=== PATIENT | male | born 1945 | race African-American/Black ===

== ENCOUNTER 2018-02-02 12:34 | Inpatient (IN) | payer OTHER ==
[2018-02-02 13:01] VITALS: BMI 24.9
--- NOTE | 2018-02-02 13:17 | HP ---
CIWA Score - CIWA Score Nausea/Vomitin-Mild Nausea/No Vomiting Muscle Tremors: 4-Moderate,w/Arms Extend Anxiety: 4-Mod. 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" 1979 heart attack Allergies/Adverse Reactions: Allergies Allergy/AdvReac Type Severity Reaction Status Date / Time No Known Allergies Allergy Verified 02/02/18 13:19 History of Present Illness: 72 years old male with long history of alcohol nicotine dependence has asthma and hypertension denies mental illness longest sobriety 3 years last detox "years ago" history of lumbar plate 2014 surgical repaired from fall is admitted to detox Exam Limitations: No Limitations - Ebola screening Have you traveled outside of the country in the last 21 days: No Have you had contact with anyone from an Ebola affected area: No Have you been sick,other than usual withdrawal symptoms: No Do you have a fever: No - Review of Systems Constitutional: Night Sweats, Weight Stable EENT: reports: Blurred Vision (need eye glasses) Respiratory: reports: SOB with Exertion, Productive cough (smoker's cough) Cardiac: reports: No Symptoms Reported GI: reports: Nausea, Poor Fluid Intake, Indigestion, Abdominal cramping : reports: No Symptoms Reported Musculoskeletal: reports: Back Pain (lumbar surgery for fall) Integumentary: reports: No Symptoms Reported Neuro: reports: Tremors Endocrine: reports: No Symptoms Reported Hematology: reports: No Symptoms Reported Psychiatric: reports: Judgement Intact, Orientated x3, Anxious, Depressed Other Systems: Reviewed and Negative Patient History - Patient Medical History Hx Anemia: No Hx Asthma: Yes Hx Chronic Obstructive Pulmonary Disease (COPD): No Hx Cancer: No Hx Cardiac Disorders: No Hx Congestive Heart Failure: No Hx Hypertension: Yes Hx Hypercholesterolemia: No Hx Pacemaker: No HX Cerebrovascular Accident: No Hx Seizures: No Hx Dementia: No Hx Diabetes: No Hx Gastrointestinal Disorders: Yes Hx Liver Disease: No Hx Genitourinary Disorders: No Hx Sexually Transmitted Disorders: No Hx Renal Disease (ESRD): No Hx Thyroid Disease: No Hx Human Immunodeficiency Virus (HIV): No Hx Hepatitis C: No Hx Depression: No Hx Suicide Attempt: No Hx Bipolar Disorder: No Hx Schizophrenia: No - Patient Surgical History Past Surgical History: Yes Hx Neurologic Surgery: Yes (lumbar 2014) Hx Cataract Extraction: No Hx Cardiac Surgery: No Hx Lung Surgery: No Hx Breast Surgery: No Hx Breast Biopsy: No Hx Abdominal Surgery: No Hx Appendectomy: No Hx Cholecystectomy: No Hx Genitourinary Surgery: No Hx Orthopedic Surgery: Yes (spine) Anesthesia Reaction: No - PPD History Previous Implant?: Yes Documented Results: Positive w/o proof Implanted On Prior [facility] Admission?: No PPD to be Administered?: No - Smoking Cessation Smoking history: Current every day smoker Have you smoked in the past 12 months: Yes Aproximately how many cigarettes per day: 10 Cigars Per Day: 0 Hx Chewing Tobacco Use: No Initiated information on smoking cessation: Yes 'Breaking Loose' booklet given: 02/02/18 - Substance & Tx. History Hx Alcohol Use: Yes Hx Substance Use: Yes Substance Use Type: Alcohol, Cocaine Hx Substance Use Treatment: Yes (2015) Family Disease History - Family Disease History Family Disease History: Heart Disease: Father (), Mother (), Other: Father, Mother Admission Physical Exam BHS - Vital Signs Vital Signs: Vital Signs - 24 hr 02/02/18 12:57 Temperature 98 F Pulse Rate 80 Respiratory 18 Rate Blood Pressure 143/76 - Physical General Appearance: Yes: Nourished, Appropriately Dressed, Mild Distress, Tremorous, Irritable, Sweating, Anxious HEENTM: Yes: Hearing grossly Normal, Normocephalic, Normal Voice Respiratory: Yes: Chest Non-Tender, No Respiratory Distress, No Accessory Muscle Use, Wheezing, Expiration Neck: Yes: Supple, Trachea in good position Breast: Yes: Breasts Symetrical, No Discharge Cardiology: Yes: Regular Rhythm, Regular Rate, S1, S2 Abdominal: Yes: Normal Bowel Sounds, Non Tender, Flat Genitourinary: Yes: Within Normal Limits Back: Yes: Normal Inspection Musculoskeletal: Yes: Gait Steady (walker), Muscle weakness (legs) Extremities: Yes: Normal Inspection, Non-Tender, Tremors Neurological: Yes: Fully Oriented, Alert, Normal Mood/Affect, Normal Response Integumentary: Yes: Warm Lymphatic: Yes: Within Normal Limits - Diagnostic (1) Alcohol dependence with uncomplicated withdrawal Current Visit: Yes Status: Acute (2) Positive PPD, treated Current Visit: Yes Status: Resolved (3) Nicotine dependence Current Visit: Yes Status: Acute Qualifiers: Nicotine product type: cigarettes Substance use status: in withdrawal Qualified Code(s): F17.213 - Nicotine dependence, cigarettes, with withdrawal (4) Asthma Current Visit: Yes Status: Chronic Qualifiers: Asthma severity: mild Asthma persistence: intermittent Asthma complication type: with status asthmaticus Qualified Code(s): J45.22 - Mild intermittent asthma with status asthmaticus (5) Hypertension Current Visit: Yes Status: Chronic Qualifiers: Hypertension type: essential hypertension Qualified Code(s): I10 - Essential (primary) hypertension (6) GERD (gastroesophageal reflux disease) Current Visit: Yes Status: Chronic Qualifiers: Esophagitis presence: without esophagitis Qualified Code(s): K21.9 - Gastro -esophageal reflux disease without esophagitis (7) Walker as ambulation aid Current Visit: Yes Status: Chronic Cleared for Admission BHS - Detox or Rehab [facility] Level of Care: Medically Managed Detox Regimen/Protocol: Librium [facility] Breath Alcohol Content Breath Alcohol Content: 0 Urine Drug Screen - Control Is Test Valid: Yes - Results Drug Screen Negative: No Urine Drug Screen Results: JANELLE-Cocaine
[2018-02-02] MEDS ORDERED: guaiFENesin/D-METHORPHAN HB 10 ML UNIT-DOSE CUPS PO PRN (13:34)
[2018-02-02] MEDS ORDERED: MAGNESIUM HYDROX 2400MG/30ML ORAL SUSPENSION 30 ML CUP PO PRN (13:34)
[2018-02-02] MEDS ORDERED: IBUPROFEN 400 MG TABLET (FP) PO PRN (13:34)
[2018-02-02] MEDS ORDERED: MAG HYDROX/AL HYDROX/SIMETH 30 ML UNIT-DOSE CUP PO PRN (13:34)
[2018-02-02] MEDS ORDERED: LOPERAMIDE HCL 2 MG CAPSULE PO PRN (13:34)
[2018-02-02] MEDS ORDERED: MENTHOL/PHENOL 1 EACH UD MM PRN (13:34)
[2018-02-02] MEDS ORDERED: MAGNESIUM CITRATE 300 ML BOTTLE PO PRN (13:34)
[2018-02-02] MEDS ORDERED: ACETAMINOPHEN 325 MG TABLET (FP) PO PRN (13:34)
[2018-02-02] MEDS ORDERED: P-EPHED 60MG/TRIPROLIDI 2.5MG TABLET PO PRN (13:34)
[2018-02-02] MEDS ORDERED: NICOTINE POLACRILEX 2 MG GUM BUC PRN (13:34)
[2018-02-02] MEDS ORDERED: chlordiazePOXIDE HCL 25 MG CAPSULE PO PRN (13:34)
[2018-02-02] MEDS ORDERED: ALBUTEROL SO4 8 GM HFA INHALER IH PRN (13:38)
[2018-02-02] MEDS: RANITIDINE HCL 150 MG TABLET (FP) PO SCH ×2 (15:23→22:51)
[2018-02-02] MEDS: amLODIPine BESYLATE 5 MG TABLET (FP) PO SCH ×2 (15:23→22:51)
[2018-02-02] MEDS: NICOTINE 14 MG/24 HOURS TOPICAL PATCH TD SCH (15:27)
[2018-02-02 17:28] LABS: URINE APPEARANCE CLEAR; URINE BILIRUBIN NEGATIVE (<2.0 mg/dL); URINE COLOR YELLOW; URINE GLUCOSE (UA) NEGATIVE (NEGATIVE); URINE KETONE NEGATIVE (NEGATIVE); URINE LEUK ESTERASE NEGATIVE (NEGATIVE); URINE NITRITE NEGATIVE (NEGATIVE); URINE PROTEIN NEGATIVE (NEGATIVE)
[2018-02-02] MEDS: chlordiazePOXIDE HCL 25 MG CAPSULE PO SCH ×2 (17:51→22:53)
[2018-02-02] MEDS ORDERED: MELATONIN 5 MG TABLETS PO PRN (22:00)
[2018-02-02] MEDS: THIAMINE HCL 100 MG TABLET (FP) PO SCH (22:51)
[2018-02-03] MEDS: chlordiazePOXIDE HCL 25 MG CAPSULE PO SCH ×4 (06:15→22:20)
[2018-02-03 09:48] LABS: HEMATOCRIT 42.5 % (35.4-49); HEMOGLOBIN 13.9 GM/dL (11.7-16.9); MCH 30.7 pg (25.7-33.7); MCHC 32.8 g/dl (32.0-35.9); MEAN CELL VOLUME 93.8 fl (80-96); MEAN PLT VOLUME 10.2 fl (7.5-11.1); PLATELET COUNT 189 K/MM3 (134-434); RBC 4.54 M/mm3 (4.00-5.60); RDW 12.6 % (11.9-15.9); WHITE BLOOD COUNT 6.4 K/mm3 (4.0-10.0)
[2018-02-03] MEDS: RANITIDINE HCL 150 MG TABLET (FP) PO SCH ×2 (10:30→22:20)
[2018-02-03] MEDS: amLODIPine BESYLATE 5 MG TABLET (FP) PO SCH ×2 (10:30→22:20)
[2018-02-03] MEDS: PRENATAL VITAMINS W/ FOLIC ACID TABLET (FP) PO SCH (10:30)
[2018-02-03] MEDS: NICOTINE 14 MG/24 HOURS TOPICAL PATCH TD SCH (10:31)
--- NOTE | 2018-02-03 11:11 | PN ---
S CIWA - CIWA Score Nausea/Vomitin Muscle Tremors: 3 Anxiety: 3 Agitation: 3 Paroxysmal Sweats: 1-Minimal Palms Moist Orientation: 0-Oriented Tacttile Disturbances: 1-Very Mild Itch/Numbness Auditory Disturbances: 1-Very Mild Visual Disturbances: 0-None Headache: 2-Mild CIWA-Ar Total Score: 17 BHS Progress Note (SOAP) Subjective: alert,irritable,anxious,interrupted sleep,tremor Objective: 02/03/18 10:49 Vital Signs Temperature 97.7 F 02/03/18 09:11 Pulse Rate 85 02/03/18 09:11 Respiratory Rate 19 02/03/18 09:11 Blood Pressure 148/92 02/03/18 09:11 O2 Sat by Pulse Oximetry (%) ekg nsr,lvh Laboratory Last Values WBC 6.4 K/mm3 (4.0-10.0) 02/03/18 06:00 RBC 4.54 M/mm3 (4.00-5.60) 02/03/18 06:00 Hgb 13.9 GM/dL (11.7-16.9) 02/03/18 06:00 Hct 42.5 % (35.4-49) 02/03/18 06:00 MCV 93.8 fl (80-96) 02/03/18 06:00 MCH 30.7 pg (25.7-33.7) 02/03/18 06:00 MCHC 32.8 g/dl (32.0-35.9) 02/03/18 06:00 RDW 12.6 % (11.9-15.9) 02/03/18 06:00 Plt Count 189 K/MM3 (134-434) 02/03/18 06:00 MPV 10.2 fl (7.5-11.1) 02/03/18 06:00 Urine Color Yellow 02/02/18 16:00 Urine Appearance Clear 02/02/18 16:00 Urine pH 6.0 (5.0-8.0) 02/02/18 16:00 Ur Specific [place] 1.027 (1.001-1.035) 02/02/18 16:00 Urine Protein Negative (NEGATIVE) 02/02/18 16:00 Urine Glucose (UA) Negative (NEGATIVE) 02/02/18 16:00 Urine Ketones Negative (NEGATIVE) 02/02/18 16:00 Urine Blood Negative (NEGATIVE) 02/02/18 16:00 Urine Nitrite Negative (NEGATIVE) 02/02/18 16:00 Urine Bilirubin Negative (<2.0 mg/dL) 02/02/18 16:00 Urine Urobilinogen 2.0 mg/dL (0.2-1.0) 02/02/18 16:00 Ur Leukocyte Esterase Negative (NEGATIVE) 02/02/18 16:00 Assessment: 02/03/18 11:13 withdrawal symptom Plan: continue detox
--- NOTE | 2018-02-03 11:31 | EKG ---
Test Reason : Blood Pressure : / mmHG Vent. Rate : 080 BPM Atrial Rate : 080 BPM P-R Int : 152 ms QRS Dur : 094 ms QT Int : 418 ms P-R-T Axes : 060 048 057 degrees QTc Int : 482 ms NORMAL SINUS RHYTHM VOLTAGE CRITERIA FOR LEFT VENTRICULAR HYPERTROPHY NONSPECIFIC ST AND T WAVE ABNORMALITY PROLONGED QT ABNORMAL ECG Confirmed by MD KATIE, NAHED ([id number]) on 02/03/2018 11:31:32 AM Referred By: Confirmed By:NAHED WILSON MD
[2018-02-03 11:59] LABS: ALBUMIN 3.7 g/dl (3.4-5.0); ALK PHOS 117 U/L (45-117); ANION GAP 8 (8-16); BILIRUBIN,TOTAL 0.8 mg/dL (0.2-1.0); BLOOD UREA NITROGEN 17 mg/dL (7-18); CALCIUM 8.4 mg/dL (8.5-10.1); CHLORIDE 107 mmol/L (98-107); CO2 28 mmol/L (21-32); GLUCOSE,RANDOM 127 mg/dL (74-106); POTASSIUM 3.4 mmol/L (3.5-5.1); SGOT/AST 10 U/L (15-37); SGPT/ALT 12 U/L (12-78); SODIUM 143 mmol/L (136-145); TOT PROT 6.6 g/dl (6.4-8.2)
[2018-02-03] MEDS: THIAMINE HCL 100 MG TABLET (FP) PO SCH (22:20)
[2018-02-04] MEDS: chlordiazePOXIDE HCL 25 MG CAPSULE PO SCH (05:55)
[2018-02-04 09:12] VITALS: BP 123/82; PULSE 90; TEMP 97.5
--- NOTE | 2018-02-04 09:15 | PN ---
S CIWA - CIWA Score Nausea/Vomitin Muscle Tremors: 3 Anxiety: 3 Agitation: 2 Paroxysmal Sweats: 1-Minimal Palms Moist Orientation: 0-Oriented Tacttile Disturbances: 1-Very Mild Itch/Numbness Auditory Disturbances: 1-Very Mild Visual Disturbances: 0-None Headache: 2-Mild CIWA-Ar Total Score: 16 BHS Progress Note (SOAP) Subjective: ALERT,IRRITABLE,ANXIOUS,INTERRUPTED SLEEP,LOW BACK PAIN Objective: 02/04/18 09:13 Vital Signs Temperature 97.5 F L 02/04/18 09:12 Pulse Rate 90 02/04/18 09:12 Respiratory Rate 18 02/04/18 09:12 Blood Pressure 123/82 02/04/18 09:12 O2 Sat by Pulse Oximetry (%) 02/04/18 09:13 Laboratory Last Values WBC 6.4 K/mm3 (4.0-10.0) 02/03/18 06:00 RBC 4.54 M/mm3 (4.00-5.60) 02/03/18 06:00 Hgb 13.9 GM/dL (11.7-16.9) 02/03/18 06:00 Hct 42.5 % (35.4-49) 02/03/18 06:00 MCV 93.8 fl (80-96) 02/03/18 06:00 MCH 30.7 pg (25.7-33.7) 02/03/18 06:00 MCHC 32.8 g/dl (32.0-35.9) 02/03/18 06:00 RDW 12.6 % (11.9-15.9) 02/03/18 06:00 Plt Count 189 K/MM3 (134-434) 02/03/18 06:00 MPV 10.2 fl (7.5-11.1) 02/03/18 06:00 Sodium 143 mmol/L (136-145) 02/03/18 06:00 Potassium 3.4 mmol/L (3.5-5.1) L 02/03/18 06:00 Chloride 107 mmol/L (98-107) 02/03/18 06:00 Carbon Dioxide 28 mmol/L (21-32) 02/03/18 06:00 Anion Gap 8 (8-16) 02/03/18 06:00 BUN 17 mg/dL (7-18) 02/03/18 06:00 Creatinine 1.0 mg/dL (0.7-1.3) 02/03/18 06:00 Creat Clearance w eGFR > 60 (>60) 02/03/18 06:00 Random Glucose 127 mg/dL (74-106) H 02/03/18 06:00 Calcium 8.4 mg/dL (8.5-10.1) L 02/03/18 06:00 Total Bilirubin 0.8 mg/dL (0.2-1.0) 02/03/18 06:00 AST 10 U/L (15-37) L 02/03/18 06:00 ALT 12 U/L (12-78) 02/03/18 06:00 Alkaline Phosphatase 117 U/L (45-117) 02/03/18 06:00 Total Protein 6.6 g/dl (6.4-8.2) 02/03/18 06:00 Albumin 3.7 g/dl (3.4-5.0) 02/03/18 06:00 Urine Color Yellow 02/02/18 16:00 Urine Appearance Clear 02/02/18 16:00 Urine pH 6.0 (5.0-8.0) 02/02/18 16:00 Ur Specific [place] 1.027 (1.001-1.035) 02/02/18 16:00 Urine Protein Negative (NEGATIVE) 02/02/18 16:00 Urine Glucose (UA) Negative (NEGATIVE) 02/02/18 16:00 Urine Ketones Negative (NEGATIVE) 02/02/18 16:00 Urine Blood Negative (NEGATIVE) 02/02/18 16:00 Urine Nitrite Negative (NEGATIVE) 02/02/18 16:00 Urine Bilirubin Negative (<2.0 mg/dL) 02/02/18 16:00 Urine Urobilinogen 2.0 mg/dL (0.2-1.0) 02/02/18 16:00 Ur Leukocyte Esterase Negative (NEGATIVE) 02/02/18 16:00 RPR Titer Nonreactive (NONREACTIVE) 02/03/18 06:00 Assessment: 02/04/18 09:14 WITHDRAWAL SYMPTOM Plan: CONTINUE DETOX
--- NOTE | 2018-02-04 09:17 | PN ---
Shanika Progress Note Note: PATIENT DID NOT WANT TO COMPLETE TREATMENT DUE TO THE IN THE FAMILY,SEEN BY COUNSELOR, ALL ATTEMPTS TO CONVINCE PATIENT TO STAY WITH NO AVAIL,SIGNED RELEASE AMA
--- NOTE | 2018-02-04 09:23 | DS ---
[facility] Detox Discharge Summary Admission Date: 02/02/18 Discharge Date: 02/04/18 - History Present History: Alcohol Dependence Additional Comments: PATIENT DID NOT WANT TO COMPLETE TREATMENT,SIGNED RELEASE AMA DUE TO THE THE IN THE FAMILY, ALL ATTEMPTS TO CONVINCE PATIENT TO STAY WITH NO AVAIL K IS 3.4 ON K DUR 20 MEQ PO DAILY,DIET MODIFICATION INITIAL GLUCOSE IS 127 Pertinent Past History: ASTHMA HYPERTENSION GERD NICOTINE DEPENDENCE POSITIVE PPD LOW BACK PAIN S/P BACK SURGERY POSITIVE PPD - Physical Exam Results Vital Signs: Vital Signs Temperature 97.5 F L 02/04/18 09:12 Pulse Rate 90 02/04/18 09:12 Respiratory Rate 18 02/04/18 09:12 Blood Pressure 123/82 02/04/18 09:12 O2 Sat by Pulse Oximetry (%) Pertinent Admission Physical Exam Findings: WITHDRAWAL SIGNS AND SYMPTOM Vital Signs Temperature 97.5 F L 02/04/18 09:12 Pulse Rate 90 02/04/18 09:12 Respiratory Rate 18 02/04/18 09:12 Blood Pressure 123/82 02/04/18 09:12 O2 Sat by Pulse Oximetry (%) Laboratory Last Values WBC 6.4 K/mm3 (4.0-10.0) 02/03/18 06:00 RBC 4.54 M/mm3 (4.00-5.60) 02/03/18 06:00 Hgb 13.9 GM/dL (11.7-16.9) 02/03/18 06:00 Hct 42.5 % (35.4-49) 02/03/18 06:00 MCV 93.8 fl (80-96) 02/03/18 06:00 MCH 30.7 pg (25.7-33.7) 02/03/18 06:00 MCHC 32.8 g/dl (32.0-35.9) 02/03/18 06:00 RDW 12.6 % (11.9-15.9) 02/03/18 06:00 Plt Count 189 K/MM3 (134-434) 02/03/18 06:00 MPV 10.2 fl (7.5-11.1) 02/03/18 06:00 Sodium 143 mmol/L (136-145) 02/03/18 06:00 Potassium 3.4 mmol/L (3.5-5.1) L 02/03/18 06:00 Chloride 107 mmol/L (98-107) 02/03/18 06:00 Carbon Dioxide 28 mmol/L (21-32) 02/03/18 06:00 Anion Gap 8 (8-16) 02/03/18 06:00 BUN 17 mg/dL (7-18) 02/03/18 06:00 Creatinine 1.0 mg/dL (0.7-1.3) 02/03/18 06:00 Creat Clearance w eGFR > 60 (>60) 02/03/18 06:00 Random Glucose 127 mg/dL (74-106) H 02/03/18 06:00 Calcium 8.4 mg/dL (8.5-10.1) L 02/03/18 06:00 Total Bilirubin 0.8 mg/dL (0.2-1.0) 02/03/18 06:00 AST 10 U/L (15-37) L 02/03/18 06:00 ALT 12 U/L (12-78) 02/03/18 06:00 Alkaline Phosphatase 117 U/L (45-117) 02/03/18 06:00 Total Protein 6.6 g/dl (6.4-8.2) 02/03/18 06:00 Albumin 3.7 g/dl (3.4-5.0) 02/03/18 06:00 Urine Color Yellow 02/02/18 16:00 Urine Appearance Clear 02/02/18 16:00 Urine pH 6.0 (5.0-8.0) 02/02/18 16:00 Ur Specific [place] 1.027 (1.001-1.035) 02/02/18 16:00 Urine Protein Negative (NEGATIVE) 02/02/18 16:00 Urine Glucose (UA) Negative (NEGATIVE) 02/02/18 16:00 Urine Ketones Negative (NEGATIVE) 02/02/18 16:00 Urine Blood Negative (NEGATIVE) 02/02/18 16:00 Urine Nitrite Negative (NEGATIVE) 02/02/18 16:00 Urine Bilirubin Negative (<2.0 mg/dL) 02/02/18 16:00 Urine Urobilinogen 2.0 mg/dL (0.2-1.0) 02/02/18 16:00 Ur Leukocyte Esterase Negative (NEGATIVE) 02/02/18 16:00 RPR Titer Nonreactive (NONREACTIVE) 02/03/18 06:00 - Treatment Patient has Accepted a Rehab Referral to: DECLINED - Medication Discharge Medications: Ambulatory Orders Albuterol Sulfate Inhaler - [Ventolin Hfa Inhaler -] 2 inh PO Q4H 02/02/18 - Diagnosis (1) Alcohol dependence with uncomplicated withdrawal Current Visit: Yes Status: Acute (2) Nicotine dependence Current Visit: Yes Status: Acute Qualifiers: Nicotine product type: cigarettes Substance use status: in withdrawal Qualified Code(s): F17.213 - Nicotine dependence, cigarettes, with withdrawal (3) Asthma Current Visit: Yes Status: Chronic Qualifiers: Asthma severity: mild Asthma persistence: intermittent Asthma complication type: with status asthmaticus Qualified Code(s): J45.22 - Mild intermittent asthma with status asthmaticus (4) GERD (gastroesophageal reflux disease) Current Visit: Yes Status: Chronic Qualifiers: Esophagitis presence: without esophagitis Qualified Code(s): K21.9 - Gastro -esophageal reflux disease without esophagitis (5) Hypertension Current Visit: Yes Status: Chronic Qualifiers: Hypertension type: essential hypertension Qualified Code(s): I10 - Essential (primary) hypertension (6) Walker as ambulation aid Current Visit: Yes Status: Chronic (7) Positive PPD, treated Current Visit: Yes Status: Resolved - AMA Did Patient Leave Against Medical Advice: Yes
[2018-02-04] MEDS: RANITIDINE HCL 150 MG TABLET (FP) PO SCH (09:51)
[2018-02-04] MEDS: amLODIPine BESYLATE 5 MG TABLET (FP) PO SCH (09:51)
[2018-02-04] MEDS: PRENATAL VITAMINS W/ FOLIC ACID TABLET (FP) PO SCH (09:51)
[2018-02-04] MEDS ORDERED: POTASSIUM CHLORIDE TABS 20 MEQ TABLET.ER (FP) PO SCH (10:00)
[2018-02-04] MEDS ORDERED: chlordiazePOXIDE 5 MG CAPSULE PO SCH (17:00)
[2018-02-05] MEDS ORDERED: chlordiazePOXIDE HCL 10 MG CAPSULE PO SCH (17:00)
== END 2018-02-04 10:46 | disposition left against medical advice (07) | DRG 894 ==
LOC: YASAS 12:34 → Y6N 14:14
PROVIDERS: ADMIT Surgery; ATTEND Surgery
PROC: HZ2ZZZZ Detoxification Services for Substance Abuse Treatment (ICD-10-PCS; principal; 2018-02-02)
DX: F10.230 Alcohol dependence with withdrawal, uncomplicated (principal); J45.22 Mild intermittent asthma with status asthmaticus; F17.210 Nicotine dependence, cigarettes, uncomplicated; I10 Essential (primary) hypertension; K21.9 Gastro-esophageal reflux disease without esophagitis; E87.6 Hypokalemia; R76.11 Nonspecific reaction to tuberculin skin test without active tuberculosis; M54.5 Low back pain; Z98.890 Other specified postprocedural states; R26.89 Other abnormalities of gait and mobility; Z99.89 Dependence on other enabling machines and devices
CPT/HCPCS: 36415; 71046-TC-FY; 80053; 81003; 85027; 86593; 93005; 93010

== ENCOUNTER 2018-06-24 14:10 | Inpatient (IN) | payer OTHER ==
[2018-06-24 16:49] VITALS: BMI 25.4
--- NOTE | 2018-06-24 19:21 | HP ---
CIWA Score Nausea/Vomitin-No Nausea/No Vomiting Muscle Tremors: 4-Moderate,w/Arms Extend Anxiety: 1-Mildly Anxious Agitation: 4-Moderately Restless Paroxysmal Sweats: No Perspiration Orientation: 2-Disoriented Date<2 days Tacttile Disturbances: 2-Mild Itch/Numbness/Burn Auditory Disturbances: 2-Mild Harshness/Frighten Visual Disturbances: 0-None Headache: 1-Very Mild CIWA-Ar Total Score: 16 - Admission Criteria [facility]AS Guidelines: Admission for Medically Managed Detox: Requires at least one of the followin. CIWA greater than 12 2. Seizures within the past 24 hours 3. Delirium tremens within the past 24 hours 4. Hallucinations within the past 24 hours 5. Acute intervention needed for co occurring medical disorder 6. Acute intervention needed for co occurring psychiatric disorder 7. Severe withdrawal that cannot be handled at a lower level of care (continued vomiting, continued diarrhea, abnormal vital signs) requiring intravenous medication and/or fluids 8. Patient presents the following: CIWA greater than 12, Acute intervention needed for co-occurring med or psych disorder Admission Criteria Met: Admission criteria met Admission ROS [facility] Chief Complaint: seeking detox for c/o withdrawal sx's r/t alcohol Allergies/Adverse Reactions: Allergies Allergy/AdvReac Type Severity Reaction Status Date / Time No Known Allergies Allergy Verified 06/24/18 18:09 History of Present Illness: 73 Y.O. MALE WITH HX/O ALCOHOLISM AND COCAINE DEPENDENCE HERE FOR DETOX. CLIENT IS KNOWN TO THIS PROGRAM. LAST HERE 01/2018' SIGNING OUT AFTER 2 DAYS . HE IS SELF REFERRED. C/O WITHDRAWAL SX'S. CIWA 16. HE REPORTS MEDICAL HX/O ASTHMA AND HTN. HE IS NON COMPLIANT WITH HIS ANTIHYPERTENSIVE. DOES NOT RECALL NAME OF MEDS. REPORTS LONGEST CLEAN TIME 1 YEAR BUT DENIES ANY FOR THE PAST YEAR. DENIES HX/O SEIZURES, AVH, SI/HI. HE IS CURRENTLY HOMELESS. PSYCH- DENIES MEDS- DOES NOT RECALL Exam Limitations: No Limitations - Ebola screening Have you traveled outside of the country in the last 21 days: No (N) Have you had contact with anyone from an Ebola affected area: No Have you been sick,other than usual withdrawal symptoms: No Do you have a fever: No - Review of Systems Constitutional: Loss of Appetite, Malaise EENT: reports: Dental Problems (EDENTULOUS) Respiratory: reports: Shortness of Breath, Other (HX/O ASTHMA) Cardiac: reports: No Symptoms Reported GI: reports: Poor Appetite, Poor Fluid Intake : reports: No Symptoms Reported Musculoskeletal: reports: Back Pain (CHRONIC) Integumentary: reports: No Symptoms Reported Neuro: reports: No Symptoms reported Endocrine: reports: No Symptoms Reported Hematology: reports: No Symptoms Reported Psychiatric: reports: Agitated (IRRITABLE), Depressed Other Systems: Reviewed and Negative Patient History - Patient Medical History Hx Anemia: No Hx Asthma: Yes Hx Chronic Obstructive Pulmonary Disease (COPD): No Hx Cancer: No Hx Cardiac Disorders: No Hx Congestive Heart Failure: No Hx Hypertension: Yes Hx Hypercholesterolemia: No Hx Pacemaker: No HX Cerebrovascular Accident: No Hx Seizures: No Hx Dementia: No Hx Diabetes: No Hx Gastrointestinal Disorders: No Hx Liver Disease: No Hx Genitourinary Disorders: No Hx Sexually Transmitted Disorders: No Hx Renal Disease (ESRD): No Hx Thyroid Disease: No Hx Human Immunodeficiency Virus (HIV): No Hx Hepatitis C: No Hx Depression: No Hx Suicide Attempt: No Hx Bipolar Disorder: No Hx Schizophrenia: No Other Medical History: DENIES - Patient Surgical History Past Surgical History: Yes Hx Neurologic Surgery: Yes (lumbar 2013) Hx Cataract Extraction: No Hx Cardiac Surgery: No Hx Lung Surgery: No Hx Breast Surgery: No Hx Breast Biopsy: No Hx Abdominal Surgery: No Hx Appendectomy: No Hx Cholecystectomy: No Hx Genitourinary Surgery: No Hx Section: No Hx Orthopedic Surgery: Yes (spine) Anesthesia Reaction: No - PPD History Previous Implant?: Yes Documented Results: Positive w/proof Implanted On Prior [facility] Admission?: No Results: - CXR 01/2018 PPD to be Administered?: No - Smoking Cessation Smoking history: Current every day smoker Have you smoked in the past 12 months: Yes Aproximately how many cigarettes per day: 6 Cigars Per Day: 0 Hx Chewing Tobacco Use: No Initiated information on smoking cessation: Yes 'Breaking Loose' booklet given: 06/24/18 - Substance & Tx. History Hx Alcohol Use: Yes Hx Substance Use: Yes Substance Use Type: Alcohol, Cocaine Hx Substance Use Treatment: Yes ([facility]) - Substances Abused Alcohol Route: Oral Frequency: 3-6 times per week Amount used: liquor- 3 pints, beer- 1 six pack Age of first use: 15 Date of Last Use: 06/24/18 Crack Route: Smoking Frequency: Daily Amount used: 3gm Age of first use: 17 Date of Last Use: 06/24/18 Family Disease History - Family Disease History Family Disease History: Heart Disease: Father (), Mother (), Other: Father, Mother Admission Physical Exam S - Vital Signs Vital Signs: Vital Signs - 24 hr 06/24/18 16:48 Temperature 97.9 F Pulse Rate 83 Respiratory 18 Rate Blood Pressure 140/93 - Physical General Appearance: Yes: Appropriately Dressed, Irritable HEENTM: Yes: EOMI, Normocephalic, Normal Voice, JUANITA, Pharynx Normal, Other ( EDENTULOUS) Respiratory: Yes: Chest Non-Tender, Lungs Clear, Decreased Breath Sounds, No Respiratory Distress, No Accessory Muscle Use Neck: Yes: No masses,lesions,Nodules, Supple, Trachea in good position Breast: Yes: Breast Exam Deferred Cardiology: Yes: Regular Rhythm, Regular Rate, S1, S2 Abdominal: Yes: Non Tender, Soft Genitourinary: Yes: Within Normal Limits (NO C/O OFFERED) Back: Yes: Vertebral Tenderness, Surgical Scar Musculoskeletal: Yes: full range of Motion, Gait Steady, Back pain (C/O) Extremities: Yes: Normal Range of Motion, Non-Tender Neurological: Yes: Fully Oriented, Alert, Motor Strength 5/5, Depressed Affect Integumentary: Yes: Dry, Warm Lymphatic: Yes: Within Normal Limits - Diagnostic (1) At risk for dehydration due to poor fluid intake Current Visit: Yes Status: Acute (2) Depressed affect Current Visit: Yes Status: Acute (3) Nicotine dependence Current Visit: Yes Status: Chronic Qualifiers: Nicotine product type: cigarettes Substance use status: in withdrawal Qualified Code(s): F17.213 - Nicotine dependence, cigarettes, with withdrawal (4) Asthma Current Visit: Yes Status: Chronic Qualifiers: Asthma severity: mild Asthma persistence: intermittent Asthma complication type: with status asthmaticus Qualified Code(s): J45.22 - Mild intermittent asthma with status asthmaticus (5) Hypertension Current Visit: Yes Status: Chronic Qualifiers: Hypertension type: essential hypertension Qualified Code(s): I10 - Essential (primary) hypertension (6) Positive PPD, treated Current Visit: Yes Status: Chronic (7) Non compliance w medication regimen Current Visit: Yes Status: Suspected Cleared for Admission [facility] - Detox or Rehab [facility] Level of Care: Medically Managed Detox Regimen/Protocol: Librium Claeared for Rehab Admission: No [facility] Breath Alcohol Content Breath Alcohol Content: 0 Urine Drug Screen - Results Drug Screen Negative: No Urine Drug Screen Results: JANELLE-Cocaine
[2018-06-24] MEDS ORDERED: P-EPHED 60MG/TRIPROLIDI 2.5MG TABLET PO PRN (19:31)
[2018-06-24] MEDS ORDERED: IBUPROFEN 400 MG TABLET (FP) PO PRN (19:31)
[2018-06-24] MEDS ORDERED: NICOTINE POLACRILEX 2 MG GUM BC PRN (19:31)
[2018-06-24] MEDS ORDERED: hydrOXYzine PAMOATE 50 MG CAPSULE (FP) PO PRN (19:31)
[2018-06-24] MEDS ORDERED: MENTHOL/PHENOL 1 EACH UD MM PRN (19:31)
[2018-06-24] MEDS ORDERED: MAGNESIUM HYDROX 2400MG/30ML ORAL SUSPENSION 30 ML CUP PO PRN (19:31)
[2018-06-24] MEDS ORDERED: MAG HYDROX/AL HYDROX/SIMETH 30 ML UNIT-DOSE CUP PO PRN (19:31)
[2018-06-24] MEDS ORDERED: MAGNESIUM CITRATE 300 ML BOTTLE PO PRN (19:31)
[2018-06-24] MEDS ORDERED: chlordiazePOXIDE HCL 25 MG CAPSULE PO PRN (19:31)
[2018-06-24] MEDS ORDERED: LOPERAMIDE HCL 2 MG CAPSULE PO PRN (19:31)
[2018-06-24] MEDS ORDERED: ACETAMINOPHEN 325 MG TABLET (FP) PO PRN (19:31)
[2018-06-24] MEDS ORDERED: cloNIDine HCL 0.1 MG TABLET PO PRN (19:32)
[2018-06-24] MEDS: THIAMINE HCL 100 MG TABLET (FP) PO SCH (21:58)
[2018-06-24] MEDS: chlordiazePOXIDE HCL 25 MG CAPSULE PO SCH (22:00)
[2018-06-25] MEDS: chlordiazePOXIDE HCL 25 MG CAPSULE PO SCH ×4 (05:30→22:42)
[2018-06-25] MEDS: PRENATAL VITAMINS W/ FOLIC ACID TABLET (FP) PO SCH (10:09)
[2018-06-25] MEDS: NICOTINE 14 MG/24 HOURS TOPICAL PATCH TD SCH (10:10)
[2018-06-25 10:14] LABS: HEMATOCRIT 40.3 % (35.4-49); MCH 30.2 pg (25.7-33.7); MCHC 32.2 g/dl (32.0-35.9); MEAN CELL VOLUME 93.7 fl (80-96); MEAN PLT VOLUME 9.6 fl (7.5-11.1); PLATELET COUNT 201 K/MM3 (134-434); RDW 12.2 % (11.9-15.9); WHITE BLOOD COUNT 5.5 K/mm3 (4.0-10.0)
[2018-06-25] MEDS ORDERED: BISACODYL 5 MG TABLET.DR (FP) PO ONE (11:15)
[2018-06-25 11:19] LABS: ALBUMIN 3.1 g/dl (3.4-5.0); ALK PHOS 114 U/L (45-117); ANION GAP 5 MMOL/L (8-16); BILIRUBIN,TOTAL 0.6 mg/dL (0.2-1); BLOOD UREA NITROGEN 13 mg/dL (7-18); CALCIUM 7.9 mg/dL (8.5-10.1); CHLORIDE 106 mmol/L (98-107); CO2 29 mmol/L (21-32); CREATININE 0.9 mg/dL (0.55-1.3); GLUCOSE,RANDOM 84 mg/dL (74-106); POTASSIUM 3.6 mmol/L (3.5-5.1); SGOT/AST 13 U/L (15-37); SGPT/ALT 14 U/L (13-61); SODIUM 140 mmol/L (136-145); TOT PROT 5.8 g/dl (6.4-8.2)
--- NOTE | 2018-06-25 12:00 | PN ---
S CIWA - CIWA Score Nausea/Vomitin Muscle Tremors: 4-Moderate,w/Arms Extend Anxiety: 4-Mod. Anxious/Guarded Agitation: 4-Moderately Restless Paroxysmal Sweats: 3 Orientation: 0-Oriented Tacttile Disturbances: 0-None Auditory Disturbances: 0-None Visual Disturbances: 0-None Headache: 0-None Present CIWA-Ar Total Score: 17 BHS Progress Note (SOAP) Subjective: Tremor, chills, sweating, headache (3/10), interrupted sleep, constipation ( reports h/o constipation x 1 week and doesn't want citroma; agreed to dulcolax) Objective: 06/25/18 11:53 Last Vital Signs Temp Pulse Resp BP Pulse Ox 97.7 F 80 18 140/79 06/25/18 09:09 06/25/18 09:09 06/25/18 09:09 06/25/18 09:09 Laboratory Tests 06/25/18 06/25/18 07:00 07:00 WBC 5.5 RBC 4.30 Hgb 13.0 Hct 40.3 MCV 93.7 MCH 30.2 MCHC 32.2 RDW 12.2 Plt Count 201 MPV 9.6 Sodium 140 Potassium 3.6 Chloride 106 Carbon Dioxide 29 Anion Gap 5 L BUN 13 Creatinine 0.9 Creat Clearance w eGFR > 60 Random Glucose 84 Calcium 7.9 L Total Bilirubin 0.6 AST 13 L ALT 14 Alkaline Phosphatase 114 Total Protein 5.8 L Albumin 3.1 L Labs reviewed Assessment: 06/25/18 12:00 Withdrawal symptoms Plan: Continue detox Encouraged PO water intake
[2018-06-25 21:30] LABS: URINE APPEARANCE CLEAR; URINE BILIRUBIN NEGATIVE (<2.0 mg/dL); URINE COLOR LTYELLOW; URINE GLUCOSE (UA) NEGATIVE (NEGATIVE); URINE KETONE NEGATIVE (NEGATIVE); URINE LEUK ESTERASE NEGATIVE (NEGATIVE); URINE NITRITE NEGATIVE (NEGATIVE); URINE PROTEIN NEGATIVE (NEGATIVE); URINE UROBILINOGEN NEGATIVE mg/dL (0.2-1.0)
[2018-06-25] MEDS: THIAMINE HCL 100 MG TABLET (FP) PO SCH (22:42)
[2018-06-26] MEDS: chlordiazePOXIDE HCL 25 MG CAPSULE PO SCH ×3 (06:11→17:23)
[2018-06-26] MEDS: PRENATAL VITAMINS W/ FOLIC ACID TABLET (FP) PO SCH (10:24)
[2018-06-26] MEDS: PANTOPRAZOLE 40 MG TABLET (FP) PO SCH (10:26)
[2018-06-26] MEDS: NICOTINE 14 MG/24 HOURS TOPICAL PATCH TD SCH (10:27)
--- NOTE | 2018-06-26 11:20 | PN ---
[facility] CIWA - CIWA Score Nausea/Vomitin-Mild Nausea/No Vomiting Muscle Tremors: 3 Anxiety: 3 Agitation: 3 Paroxysmal Sweats: 3 Orientation: 0-Oriented Tacttile Disturbances: 0-None Auditory Disturbances: 0-None Visual Disturbances: 0-None Headache: 0-None Present CIWA-Ar Total Score: 13 [facility] Progress Note (SOAP) Subjective: Interrupted sleep, anxious; patient c/o gerd stating zantac doesn't work and wants protonix or nexium. Objective: 06/26/18 11:17 Last Vital Signs Temp Pulse Resp BP Pulse Ox 97.6 F 96 H 18 147/87 06/26/18 11:14 06/26/18 11:14 06/26/18 11:14 06/26/18 11:14 Laboratory Tests 06/25/18 06/25/18 06/25/18 07:00 07:00 18:40 WBC 5.5 RBC 4.30 Hgb 13.0 Hct 40.3 MCV 93.7 MCH 30.2 MCHC 32.2 RDW 12.2 Plt Count 201 MPV 9.6 Sodium 140 Potassium 3.6 Chloride 106 Carbon Dioxide 29 Anion Gap 5 L BUN 13 Creatinine 0.9 Creat Clearance w eGFR > 60 Random Glucose 84 Calcium 7.9 L Total Bilirubin 0.6 AST 13 L ALT 14 Alkaline Phosphatase 114 Total Protein 5.8 L Albumin 3.1 L Urine Color Ltyellow Urine Appearance Clear Urine pH 7.0 Ur Specific [place] 1.011 Urine Protein Negative Urine Glucose (UA) Negative Urine Ketones Negative Urine Blood Negative Urine Nitrite Negative Urine Bilirubin Negative Urine Urobilinogen Negative Ur Leukocyte Esterase Negative Labs reviewed Assessment: 06/26/18 11:18 Withdrawal symptoms Plan: Continue detox Encouraged PO water intake Protonix 40mg PO daily ordered for GERD
[2018-06-26] MEDS: guaiFENesin/D-METHORPHAN HB 10 ML UNIT-DOSE CUPS PO PRN (18:13)
[2018-06-26] MEDS: THIAMINE HCL 100 MG TABLET (FP) PO SCH (22:07)
[2018-06-26] MEDS: MELATONIN 5 MG TABLETS PO PRN (22:07)
[2018-06-26] MEDS: chlordiazePOXIDE 5 MG CAPSULE PO SCH (22:08)
[2018-06-27] MEDS: chlordiazePOXIDE 5 MG CAPSULE PO SCH ×3 (05:45→17:31)
[2018-06-27] MEDS: PANTOPRAZOLE 40 MG TABLET (FP) PO SCH (06:02)
[2018-06-27] MEDS: guaiFENesin/D-METHORPHAN HB 10 ML UNIT-DOSE CUPS PO PRN ×2 (06:22→19:28)
--- NOTE | 2018-06-27 10:02 | PN ---
[facility] Progress Note (SOAP) Subjective: ANXIETY, SWEATS,NO BM X 3 DAYS- REPORTS MOM AND CITRATE NOT EFFECTIVE. Objective: 06/27/18 10:01 Vital Signs 06/27/18 06/27/18 06:11 09:31 Temperature 97.3 F L 98.6 F Pulse Rate 69 73 Respiratory 18 18 Rate Blood Pressure 142/80 143/89 Laboratory Tests 06/25/18 06/25/18 06/25/18 07:00 07:00 07:00 WBC 5.5 RBC 4.30 Hgb 13.0 Hct 40.3 MCV 93.7 MCH 30.2 MCHC 32.2 RDW 12.2 Plt Count 201 MPV 9.6 Sodium 140 Potassium 3.6 Chloride 106 Carbon Dioxide 29 Anion Gap 5 L BUN 13 Creatinine 0.9 Creat Clearance w eGFR > 60 Random Glucose 84 Calcium 7.9 L Total Bilirubin 0.6 AST 13 L ALT 14 Alkaline Phosphatase 114 Total Protein 5.8 L Albumin 3.1 L Urine Color Urine Appearance Urine pH Ur Specific [place] Urine Protein Urine Glucose (UA) Urine Ketones Urine Blood Urine Nitrite Urine Bilirubin Urine Urobilinogen Ur Leukocyte Esterase RPR Titer Nonreactive 06/25/18 18:40 WBC RBC Hgb Hct MCV MCH MCHC RDW Plt Count MPV Sodium Potassium Chloride Carbon Dioxide Anion Gap BUN Creatinine Creat Clearance w eGFR Random Glucose Calcium Total Bilirubin AST ALT Alkaline Phosphatase Total Protein Albumin Urine Color Ltyellow Urine Appearance Clear Urine pH 7.0 Ur Specific [place] 1.011 Urine Protein Negative Urine Glucose (UA) Negative Urine Ketones Negative Urine Blood Negative Urine Nitrite Negative Urine Bilirubin Negative Urine Urobilinogen Negative Ur Leukocyte Esterase Negative RPR Titer Assessment: 06/27/18 10:01 WITHDRAWAL SX CONSTIPATION Plan: CONTINUE DETOX FLEET ENEMA X 1
[2018-06-27] MEDS ORDERED: SODIUM PHOSPHATE/NA BIPHOS 133 ML ENEMA PR ONE (10:04)
[2018-06-27] MEDS: PRENATAL VITAMINS W/ FOLIC ACID TABLET (FP) PO SCH (10:54)
[2018-06-27] MEDS: NICOTINE 14 MG/24 HOURS TOPICAL PATCH TD SCH (10:54)
[2018-06-27] MEDS: MELATONIN 5 MG TABLETS PO PRN (22:16)
[2018-06-27] MEDS: chlordiazePOXIDE HCL 10 MG CAPSULE PO SCH (22:16)
[2018-06-27] MEDS: THIAMINE HCL 100 MG TABLET (FP) PO SCH (22:16)
[2018-06-28] MEDS: chlordiazePOXIDE HCL 10 MG CAPSULE PO SCH ×2 (05:25→11:02)
[2018-06-28] MEDS: guaiFENesin/D-METHORPHAN HB 10 ML UNIT-DOSE CUPS PO PRN (05:25)
[2018-06-28] MEDS: PANTOPRAZOLE 40 MG TABLET (FP) PO SCH (06:22)
[2018-06-28 09:49] VITALS: BP 131/78; PULSE 78; TEMP 97
[2018-06-28] MEDS: NICOTINE 14 MG/24 HOURS TOPICAL PATCH TD SCH (11:02)
[2018-06-28] MEDS: PRENATAL VITAMINS W/ FOLIC ACID TABLET (FP) PO SCH (11:02)
--- NOTE | 2018-06-28 12:36 | DS ---
[facility] Detox Discharge Summary Admission Date: 06/24/18 Discharge Date: 06/28/18 - History Present History: Alcohol Dependence, Cocaine Dependence Additional Comments: Patient completed detox successfully. Patient instructed to follow up with PCP within 1-2 weeks. Pertinent Past History: Alcohol dependence Cocaine dependence Asthma HTN (non compliant with medication) PPD Positive Nicotine dependence - Physical Exam Results Vital Signs: Vital Signs Temperature 97 F L 06/28/18 09:48 Pulse Rate 78 06/28/18 09:48 Respiratory Rate 16 06/28/18 09:48 Blood Pressure 131/78 06/28/18 09:48 O2 Sat by Pulse Oximetry (%) Pertinent Admission Physical Exam Findings: Withdrawal symptoms Laboratory Tests 06/25/18 06/25/18 06/25/18 07:00 07:00 07:00 WBC 5.5 RBC 4.30 Hgb 13.0 Hct 40.3 MCV 93.7 MCH 30.2 MCHC 32.2 RDW 12.2 Plt Count 201 MPV 9.6 Sodium 140 Potassium 3.6 Chloride 106 Carbon Dioxide 29 Anion Gap 5 L BUN 13 Creatinine 0.9 Creat Clearance w eGFR > 60 Random Glucose 84 Calcium 7.9 L Total Bilirubin 0.6 AST 13 L ALT 14 Alkaline Phosphatase 114 Total Protein 5.8 L Albumin 3.1 L Urine Color Urine Appearance Urine pH Ur Specific [place] Urine Protein Urine Glucose (UA) Urine Ketones Urine Blood Urine Nitrite Urine Bilirubin Urine Urobilinogen Ur Leukocyte Esterase RPR Titer Nonreactive 06/25/18 18:40 WBC RBC Hgb Hct MCV MCH MCHC RDW Plt Count MPV Sodium Potassium Chloride Carbon Dioxide Anion Gap BUN Creatinine Creat Clearance w eGFR Random Glucose Calcium Total Bilirubin AST ALT Alkaline Phosphatase Total Protein Albumin Urine Color Ltyellow Urine Appearance Clear Urine pH 7.0 Ur Specific [place] 1.011 Urine Protein Negative Urine Glucose (UA) Negative Urine Ketones Negative Urine Blood Negative Urine Nitrite Negative Urine Bilirubin Negative Urine Urobilinogen Negative Ur Leukocyte Esterase Negative RPR Titer Labs reviewed - Treatment Hospital Course: Detox Protocol Followed, Detoxed Safely, Responded well, Discharged Condition Good - Medication Discharge Medications: Ambulatory Orders Albuterol Sulfate Inhaler - [Ventolin Hfa Inhaler -] 2 inh PO Q4H 02/02/18 - Diagnosis (1) Cocaine dependence Current Visit: Yes Status: Chronic Qualifiers: Substance use status: uncomplicated Qualified Code(s): F14.20 - Cocaine dependence, uncomplicated (2) Constipation Current Visit: Yes Status: Chronic (3) Asthma Current Visit: Yes Status: Chronic Qualifiers: Asthma severity: mild Asthma persistence: unspecified Asthma complication type: uncomplicated Qualified Code(s): J45.909 - Unspecified asthma, uncomplicated (4) Hypertension Current Visit: Yes Status: Chronic Qualifiers: Hypertension type: essential hypertension Qualified Code(s): I10 - Essential (primary) hypertension (5) Nicotine dependence Current Visit: Yes Status: Chronic Qualifiers: Nicotine product type: cigarettes Substance use status: in withdrawal Qualified Code(s): F17.213 - Nicotine dependence, cigarettes, with withdrawal (6) Positive PPD, treated Current Visit: Yes Status: Chronic (7) Alcohol dependence with uncomplicated withdrawal Current Visit: Yes Status: Acute (8) GERD (gastroesophageal reflux disease) Current Visit: Yes Status: Chronic Qualifiers: Esophagitis presence: esophagitis presence not specified Qualified Code(s) : K21.9 - Gastro-esophageal reflux disease without esophagitis - AMA Did Patient Leave Against Medical Advice: No (F/U with PCP within 1-2 weeks)
== END 2018-06-28 12:15 | disposition home or self-care (01) | DRG 897 ==
LOC: YASAS 14:10 → Y3N 19:58
PROC: HZ2ZZZZ Detoxification Services for Substance Abuse Treatment (ICD-10-PCS; principal; 2018-06-24)
DX: F10.230 Alcohol dependence with withdrawal, uncomplicated (principal); J45.22 Mild intermittent asthma with status asthmaticus; F14.20 Cocaine dependence, uncomplicated; F17.213 Nicotine dependence, cigarettes, with withdrawal; I10 Essential (primary) hypertension; K21.9 Gastro-esophageal reflux disease without esophagitis; K59.00 Constipation, unspecified; R45.89 Other symptoms and signs involving emotional state; R76.11 Nonspecific reaction to tuberculin skin test without active tuberculosis; Z91.89 Other specified personal risk factors, not elsewhere classified; Z91.14 Patient's other noncompliance with medication regimen
CPT/HCPCS: 36415; 80053; 81003; 85027; 86593